=== PATIENT | male | born 1990 | race Hispanic/Latino ===

== ENCOUNTER 2018-03-21 23:40 | Emergency (ER) | payer OTHER | END 2018-03-22 01:42 | disposition home or self-care (01) | LOC: EDH 23:40 | DX: S70.11XA Contusion of right thigh, initial encounter (principal); S09.8XXA Other specified injuries of head, initial encounter; S80.212A Abrasion, left knee, initial encounter; V49.40XA Driver injured in collision with unspecified motor vehicles in traffic accident, initial encounter; Y93.89 Activity, other specified; Y92.410 Unspecified street and highway as the place of occurrence of the external cause; Y99.8 Other external cause status | CPT/HCPCS: 70450; 72125; 73552 ==

== ENCOUNTER 2019-09-06 11:17 | Emergency (ER) | payer SELFPAY ==
[2019-09-06] MEDS ORDERED: TETRACAINE HCL 0.5% 4 ML OPHTH SOLN ONE ×2 (12:17→12:29)
== END 2019-09-06 12:42 | disposition home or self-care (01) ==
LOC: EDH 11:17
DX: H10.9 Unspecified conjunctivitis (principal); Z72.0 Tobacco use